=== PATIENT | male | born 1990 | race Caucasian/White ===

== ENCOUNTER 2019-03-22 21:07 | Emergency (ER) | payer OTHER ==
[~2019-03-22] VITALS: Ht 162.6 cm; Wt 90.7 kg
[2019-03-22 21:41] VITALS: Ht 162.6 cm; Wt 90.7 kg
[2019-03-22 23:18] VITALS: BP 145/105
== END 2019-03-22 23:18 | disposition home or self-care (01) ==
LOC: ED 21:07
DX: S01.112A Laceration without foreign body of left eyelid and periocular area, initial encounter (principal); S05.02XA Injury of conjunctiva and corneal abrasion without foreign body, left eye, initial encounter; W01.198A Fall on same level from slipping, tripping and stumbling with subsequent striking against other object, initial encounter; Y93.89 Activity, other specified; Y92.89 Other specified places as the place of occurrence of the external cause; Y99.0 Civilian activity done for income or pay